=== PATIENT | male | born 1940 | race Asian ===

== ENCOUNTER 2017-04-06 18:20 | Emergency (ER) | payer OTHER, MEDICAID ==
[~2017-04-06] VITALS: Ht 182.9 cm; Wt 72.6 kg
[2017-04-06 18:20] VITALS: BP_SYST 147
[2017-04-06] MEDS ORDERED: NACL 0.9% 1,000 ML IV ONE (18:30)
[2017-04-06 18:50] LABS: BASOPHILS % (AUTO) 0.3 % (0.0-2.0); EOSINOPHILS # (AUTO) 0.1 K/uL (0.0-0.4); EOSINOPHILS % (AUTO) 0.8 % (0.0-4.0); HEMATOCRIT 38.3 % (36-54); HEMOGLOBIN 12.9 g/dL (14.0-18.0); LYMPHOCYTES % (AUTO) 13.2 % (20.5-51.5); MEAN CORPUSCULAR HEMOGLOBIN 31 pg (27-31); MEAN CORPUSCULAR HGB CONC 34 % (32-36); MEAN CORPUSCULAR VOLUME 92 fL (79.0-98.0); MONOCYTES # (AUTO) 0.3 K/uL (0.0-1.0); MONOCYTES % (AUTO) 4.6 % (1.7-9.3); NEUTROPHILS % (AUTO) 81.1 % (40.0-70.0); PLATELET COUNT (AUTO) 138 K/uL (130-430); RED BLOOD CELL COUNT(AUTO) 4.17 MIL/uL (4.2-6.2); RED CELL DISTRIBUTION WIDTH 13.4 % (9.0-15.0); WHITE BLOOD COUNT (AUTO) 7.4 K/uL (4.8-10.8)
[2017-04-06 19:06] LABS: ANION GAP 9 (5-15); CALCIUM 8.9 mg/dL (8.4-11.0); CHLORIDE 104 mmol/L (98-107); GLUCOSE 106 mg/dL (70-99); POTASSIUM 3.6 mmol/L (3.5-5.1); SODIUM SERUM 141 mmol/L (136-145); UREA NITROGEN, BLOOD 20 mg/dL (8-21)
[2017-04-06 19:14] LABS: ACETAMINOPHEN 1 ug/mL (1-30); ALANINE AMINOTRANSFERASE 17 U/L (12-78); ALBUMIN 3.8 g/dL (3.4-4.8); ASPARTATE AMINOTRANSFERASE 21 U/L (10-37); SALICYLATE < 1 mg/dL (3-30); TOTAL BILIRUBIN 0.6 mg/dL (0.0-1.0)
[2017-04-06 19:52] VITALS: BP_SYST 134
== END 2017-04-06 19:52 | disposition home or self-care (01) ==
LOC: SED 18:20
DX: F03.90 Unspecified dementia, unspecified severity, without behavioral disturbance, psychotic disturbance, mood disturbance, and anxiety (principal); R40.4 Transient alteration of awareness
CPT/HCPCS: 36415; 70450; 71010; 80053; 84484; 85025; 93005; 96360; 99285; G0480; G0481; J7030

== ENCOUNTER 2019-02-02 01:55 | Inpatient (IN) | payer OTHER, MEDICAID ==
[2019-02-02] VITALS (8 sets, daily range): BP systolic 111–151
[~2019-02-02] VITALS: Ht 177.8 cm; Wt 83.0 kg
[2019-02-02] MEDS ORDERED: NACL 0.9% 2,000 ML IV ONE (02:45)
[2019-02-02] MEDS ORDERED: VANCOMYCIN HCL 1,000 MG in NS 250 ML IV ONE (03:00)
[2019-02-02] MEDS ORDERED: PIPERACILLIN/TAZO 3.375 GM in NS 50 ML IV ONE (03:00)
[2019-02-02] MEDS ORDERED: OLAN5TAB26 PO (03:27)
[2019-02-02] MEDS ORDERED: ACET-2634 PO (03:28)
[2019-02-02 03:35] LABS: BASOPHILS # (AUTO) 0.1 K/uL (0.0-0.2); BASOPHILS % (AUTO) 0.6 % (0.0-2.0); EOSINOPHILS % (AUTO) 0.2 % (0.0-4.0); HEMATOCRIT 40.2 % (36-54); HEMOGLOBIN 13.2 g/dL (14.0-18.0); LYMPHOCYTES # (AUTO) 0.3 K/uL (1.0-5.5); LYMPHOCYTES % (AUTO) 2.8 % (20.5-51.5); MEAN CORPUSCULAR HEMOGLOBIN 30 pg (27-31); MEAN CORPUSCULAR HGB CONC 33 % (32-36); MEAN CORPUSCULAR VOLUME 92 fL (79.0-98.0); MONOCYTES # (AUTO) 0.9 K/uL (0.0-1.0); MONOCYTES % (AUTO) 7.6 % (1.7-9.3); NEUTROPHILS # (AUTO) 10.8 K/uL (1.8-7.7); NEUTROPHILS % (AUTO) 88.8 % (40.0-70.0); PLATELET COUNT (AUTO) 175 K/uL (130-430); RED BLOOD CELL COUNT(AUTO) 4.36 MIL/uL (4.2-6.2); RED CELL DISTRIBUTION WIDTH 14.2 % (9.0-15.0); WHITE BLOOD COUNT (AUTO) 12.1 K/uL (4.8-10.8)
[2019-02-02] MEDS ORDERED: PIPERACILLIN/TAZOBACTAM 3.375 GM/VIAL (ZOSYN) IV ONE (03:38)
[2019-02-02] MEDS ORDERED: VANCOMYCIN HCL 1000 MG/VIAL IV ONE (03:38)
[2019-02-02] MEDS ORDERED: ACETAMINOPHEN 500 MG TABLET PO ONE ×2 (04:15→05:00)
[2019-02-02 04:44] LABS: ANION GAP 8 (5-15); CALCIUM 8.3 mg/dL (8.4-11.0); CHLORIDE 101 mmol/L (98-107); CREATININE 1.39 mg/dL (0.55-1.30); GLUCOSE 109 mg/dL (70-99); POTASSIUM 3.9 mmol/L (3.5-5.1); SODIUM SERUM 134 mmol/L (136-145); UREA NITROGEN, BLOOD 17 mg/dL (8-21)
[2019-02-02] MEDS ORDERED: ACETAMINOPHEN 650 MG SUPP.RECT RC ONE (04:45)
[2019-02-02 04:50] LABS: ALANINE AMINOTRANSFERASE 21 U/L (12-78); ALBUMIN 2.9 g/dL (3.4-4.8); ASPARTATE AMINOTRANSFERASE 18 U/L (10-37); TOTAL BILIRUBIN 0.7 mg/dL (0.0-1.0)
[2019-02-02] MEDS ORDERED: IPRATROPIUM/ALBUTEROL SULFATE 3 ML AMPUL.NEB (DUONEB) INH PRN (05:30)
[2019-02-02] MEDS ORDERED: ACETAMINOPHEN 325 MG TABLET PO ONE (05:30)
[2019-02-02 06:02] LABS: BILIRUBIN,URINE NEGATIVE (NEGATIVE); BLOOD, URINE 1+ (NEGATIVE); CLARITY/URINE CLEAR (CLEAR); COLOR,URINE YELLOW (YELLOW); GLUCOSE,URINE NEGATIVE (NEGATIVE); KETONES,URINE 1+ (NEGATIVE); LEUKOCYTE ESTERASE ,URINE 1+ (NEGATIVE); NITRITE, URINE POSITIVE (NEGATIVE); PROTEIN URINE TRACE (NEGATIVE)
[2019-02-02 06:06] LABS: BACTERIA,URINE MODERATE /HPF (None Seen)
[2019-02-02] MEDS: IPRATROPIUM/ALBUTEROL SULFATE 3 ML AMPUL.NEB (DUONEB) INH SCH ×2 (11:05→22:00)
[2019-02-02] MEDS: ACETAMINOPHEN 325 MG TABLET PO PRN ×2 (12:57→21:21)
[2019-02-02] MEDS ORDERED: LEVOFLOXACIN 500 MG/D5W 100 ML IV ONE (13:15)
[2019-02-02] MEDS ORDERED: FAMOTIDINE 20 MG TABLET PO ONE (13:15)
[2019-02-03 07:17] LABS: BASOPHILS % (AUTO) 0.3 % (0.0-2.0); EOSINOPHILS % (AUTO) 0.2 % (0.0-4.0); HEMATOCRIT 37.6 % (36-54); HEMOGLOBIN 12.4 g/dL (14.0-18.0); LYMPHOCYTES # (AUTO) 0.6 K/uL (1.0-5.5); MEAN CORPUSCULAR HEMOGLOBIN 30 pg (27-31); MEAN CORPUSCULAR HGB CONC 33 % (32-36); MEAN CORPUSCULAR VOLUME 92 fL (79.0-98.0); MONOCYTES # (AUTO) 0.8 K/uL (0.0-1.0); MONOCYTES % (AUTO) 6.3 % (1.7-9.3); NEUTROPHILS # (AUTO) 11.2 K/uL (1.8-7.7); NEUTROPHILS % (AUTO) 88.2 % (40.0-70.0); PLATELET COUNT (AUTO) 158 K/uL (130-430); RED CELL DISTRIBUTION WIDTH 13.7 % (9.0-15.0); WHITE BLOOD COUNT (AUTO) 12.7 K/uL (4.8-10.8)
[2019-02-03 07:44] LABS: ALANINE AMINOTRANSFERASE 18 U/L (12-78); ALBUMIN 2.4 g/dL (3.4-4.8); ANION GAP 8 (5-15); ASPARTATE AMINOTRANSFERASE 21 U/L (10-37); CALCIUM 8.7 mg/dL (8.4-11.0); CHLORIDE 104 mmol/L (98-107); CREATININE 1.16 mg/dL (0.55-1.30); GLUCOSE 123 mg/dL (70-99); POTASSIUM 4.1 mmol/L (3.5-5.1); SODIUM SERUM 132 mmol/L (136-145); THYROID STIMULATING HORMONE 0.58 uIu/mL (0.34-4.82); TOTAL BILIRUBIN 0.6 mg/dL (0.0-1.0); UREA NITROGEN, BLOOD 15 mg/dL (8-21)
[2019-02-03 08:07] VITALS: BP_SYST 141
[2019-02-03] MEDS: FAMOTIDINE 20 MG TABLET PO SCH (08:25)
[2019-02-03] MEDS: LEVOFLOXACIN 250 MG/D5W 50 ML IV SCH (08:26)
[2019-02-03] MEDS: IPRATROPIUM/ALBUTEROL SULFATE 3 ML AMPUL.NEB (DUONEB) INH SCH ×3 (12:15→23:05)
[2019-02-03 12:45] VITALS: BP_SYST 139
[2019-02-03] MEDS ORDERED: OLANZapine 5 MG TABLET PO SCH (12:45)
[2019-02-03] MEDS ORDERED: LORazepam 1 MG TABLET PO ONE (12:45)
[2019-02-03] MEDS ORDERED: OLANZapine 5 MG TABLET PO ONE ×2 (12:45→22:15)
[2019-02-03 16:29] VITALS: BP_SYST 146
[2019-02-03 19:45] VITALS: BP_SYST 148
[2019-02-03] MEDS: ACETAMINOPHEN 325 MG TABLET PO PRN (22:17)
[2019-02-03 23:08] VITALS: BP_SYST 139
[2019-02-04] MEDS: IPRATROPIUM/ALBUTEROL SULFATE 3 ML AMPUL.NEB (DUONEB) INH SCH ×2 (07:19→15:02)
[2019-02-04 08:00] VITALS: BP_SYST 145
[2019-02-04] MEDS: FAMOTIDINE 20 MG TABLET PO SCH (08:52)
[2019-02-04] MEDS: LEVOFLOXACIN 250 MG/D5W 50 ML IV SCH (08:52)
[2019-02-04] MEDS ORDERED: OLANZapine 5 MG TABLET PO SCH (09:00)
[2019-02-04 12:37] VITALS: BP_SYST 151
[2019-02-04 15:15] VITALS: BP_SYST 154
[2019-02-04 17:57] VITALS: BP_SYST 154
== END 2019-02-04 18:30 | disposition home or self-care (01) | DRG 871 ==
LOC: SED 01:55 → STU 05:16 → SMU 02-03 21:56
PROVIDERS: ADMIT Internal Medicine; ATTEND Internal Medicine
DX: A41.9 Sepsis, unspecified organism (principal); J18.9 Pneumonia, unspecified organism; N17.0 Acute kidney failure with tubular necrosis; E43 Unspecified severe protein-calorie malnutrition; G93.41 Metabolic encephalopathy; F03.90 Unspecified dementia, unspecified severity, without behavioral disturbance, psychotic disturbance, mood disturbance, and anxiety; R73.9 Hyperglycemia, unspecified; Z68.26 Body mass index [BMI] 26.0-26.9, adult
CPT/HCPCS: 36415; 70450-TC; 71045; 80053; 81000-TC; 83605; 83880; 84443-TC; 85025; 87040-TC; 87070-TC; 87081; 87086; 87205-TC; 92610-GN; 93005; 94640; 96365; 96366; 96367; 97116-GP; 97530-GP; 99285; G0378; J1956; J2543; J3370; J7030; J7620